=== PATIENT | male | born 1995 | race Caucasian/White ===

== ENCOUNTER 2017-11-26 14:51 | Emergency (ER) | payer SELFPAY ==
[2017-11-26 17:21] VITALS: BP 122/62
--- NOTE | 2017-11-26 17:34 | UC ---
Ear Complaint HPI - HPI Summary HPI Summary: 22 y/o male presents to the urgent care c/o Right ear fullness, or water in ear sensation since 11/20/17. 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 due to DM abuse. Left thigh lesion currently being treated with Bactrim for suspected MRSA; pt had lesion looked at today by [facility] staff on 2nd visit. Pt states he is extremely anxious about losing hearing in right ear. Hx of anxiety depression; has been off antianxiety med for 2 months - History of Current Complaint Chief Complaint: UCEar Stated Complaint: EAR COMPLAINT Time Seen by Provider: 11/26/17 16:56 Hx Obtained From: Patient Pain Intensity: 0 - Allergies/Home Medications Allergies/Adverse Reactions: Allergies Allergy/AdvReac Type Severity Reaction Status Date / Time Penicillins Allergy Unknown Verified 11/26/17 16:53 Reaction Details Home Medications: Home Medications Sulfamethox/Trimethoprim DS* [Bactrim DS 800/160 TAB*] 1 tab PO BID 11/26/17 [ History Confirmed 11/26/17] PMH/Surg Hx/FS Hx/Imm Hx - Surgical History Surgical History: Yes Surgery Procedure, Year, and Place: Jaw Fracture - Family History Known Family History: Positive: None, Cardiac Disease - Social History Alcohol Use: Weekly Alcohol Amount: 10 Substance Use Type: Marijuana, Other Substance Use Comment - Amount & Last Used: yesterday Smoking Status (MU): Never Smoked Tobacco - Immunization History Most Recent Influenza Vaccination: Not the Season Physical Exam Vital Signs: Initial Vital Signs Temp 99.2 F 11/26/17 17:07 Pulse 98 11/26/17 17:07 Resp 18 11/26/17 17:07 BP 122/62 11/26/17 17:07 Pulse Ox 100 11/26/17 17:07 Discharge - Discharge Plan Referrals: Non Staff,Doctor [Primary Care Provider] -
[2017-11-26] MEDS ORDERED: Lidocaine 2% PF * 5 ML VIAL INJ ONE (17:46)
--- NOTE | 2017-11-26 18:33 | UC ---
Skin Complaint HPI - HPI Summary HPI Summary: 22 y/o male presents to the urgent care - History of Current Complaint Chief Complaint: UCEar Time Seen by Provider: 11/26/17 16:56 Stated Complaint: EAR COMPLAINT Pain Intensity: 0 - Allergy/Home Medications Allergies/Adverse Reactions: Allergies Allergy/AdvReac Type Severity Reaction Status Date / Time Penicillins Allergy Unknown Verified 11/26/17 16:53 Reaction Details Home Medications: Home Medications Sulfamethox/Trimethoprim DS* [Bactrim DS 800/160 TAB*] 1 tab PO BID 11/26/17 [ History Confirmed 11/26/17] PMH/Surg Hx/FS Hx/Imm Hx - Surgical History Surgical History: Yes Surgery Procedure, Year, and Place: Jaw Fracture - Family History Known Family History: Positive: None, Cardiac Disease - Social History Alcohol Use: Weekly Alcohol Amount: 10 Substance Use Type: Marijuana, Other Substance Use Comment - Amount & Last Used: yesterday Smoking Status (MU): Never Smoked Tobacco - Immunization History Most Recent Influenza Vaccination: Not the Season Physical Exam Vital Signs: Initial Vital Signs Temp 99.2 F 11/26/17 17:07 Pulse 98 11/26/17 17:07 Resp 18 11/26/17 17:07 BP 122/62 11/26/17 17:07 Pulse Ox 100 11/26/17 17:07 Course/Dx - Differential Diagnoses - Skin Complaint Differential Diagnoses: Abscess - Diagnoses Provider Diagnoses: 1-left thight abscess. 2-hearing loss Discharge - Discharge Plan Condition: Stable Disposition: HOME Prescriptions: Acetaminophen TAB* [Tylenol TAB*] 650 mg PO Q4H PRN #20 tab PRN Reason: Pain Bacitracin OINTMENT* 1 applic TOPICAL TID #1 tube Patient Education Materials: Hearing Loss (ED), Abscess (ED) Referrals: [facility] [Outside] - 1 Day Axel Juárez MD [Medical Doctor] - 3 Days Additional Instructions: 1-Please continue taking full course of antibiotic to avoid resistance. Keep wound clean and dry with a sterile dressing. Apply bacitracin topical as directed 2- F/u your appt tomorrow for wound check up at the [facility] or at the urgent care for removal of packing 3-. Take Tylenol PO q4-6hrs prn for pain or swelling. 4-If you develop fever or redness despite antibiotic please go to the ER immediately or return to the Urgent care. 5- Wound culture sent to lab, if any abnormal result you will receive a call from us. 6-F/u ENT referral for your hearing loss
== END 2017-11-26 18:53 | disposition home or self-care (01) ==
LOC: UCCORT 14:51
DX: L02.416 Cutaneous abscess of left lower limb (principal); H91.90 Unspecified hearing loss, unspecified ear; Z88.0 Allergy status to penicillin; Z88.2 Allergy status to sulfonamides
CPT/HCPCS: 87070; 87205; 87640; 87641; 99212; G0463

== ENCOUNTER 2017-11-28 11:06 | Emergency (ER) | payer SELFPAY ==
[2017-11-28 12:58] VITALS: BP 124/71
--- NOTE | 2017-11-28 13:00 | ED ---
Skin Complaint - HPI Summary HPI Summary: 22 y/o male presents to the urgent care for recheck on his left thigh abscess. Pt states he went to the [facility] and REWEAVER repacked his abscess. He still taking Bactrim PO. He wants to make sure his wound is improving. Pain is 2/10 at touch. Pt denies fever, drainage, SOB, red streaks, chest pain, abdominal pain, N/V/D - History of Current Complaint Chief Complaint: UCSkin Time Seen by Provider: 11/28/17 12:52 Stated Complaint: WOUND REPACKING Hx Obtained From: Patient Onset/Duration: Started Days Ago - 5 days, Still Present Skin Exposure Onset/Duration: Days Ago - 5 days Timing: Constant Onset Severity: Moderate Current Severity: Mild Pain Intensity: 2 Pain Scale Used: 0-10 Numeric Skin Location: Discrete - left thigh abscess Character: Redness Aggravating Symptom(s): Touch Alleviating Symptom(s): OTC Meds, Other: - ABXs Associated Signs & Symptoms: Rash Related History: Other: - Hx of MRSA - Allergy/Home Medications Allergies/Adverse Reactions: Allergies Allergy/AdvReac Type Severity Reaction Status Date / Time Penicillins Allergy Unknown Verified 11/28/17 12:55 Reaction Details PMH/Surg Hx/FS Hx/Imm Hx Previously Healthy: Yes - Pt denies PMHX - Surgical History Surgery Procedure, Year, and Place: Jaw Fracture - Immunization History Immunizations Up to Date: Yes Infectious Disease History: No Infectious Disease History: Denies: Traveled Outside the [place] in Last 30 Days - Family History Known Family History: Positive: Cardiac Disease Family History: Dyslipidemia - Social History Occupation: Student Lives: With Family Alcohol Use: Weekly Alcohol Amount: 10 Substance Use Type: Reports: Marijuana Substance Use Comment - Amount & Last Used: yesterday Smoking Status (MU): Never Smoked Tobacco Review of Systems Constitutional: Negative Eyes: Negative ENT: Negative Cardiovascular: Negative Respiratory: Negative Gastrointestinal: Negative Genitourinary: Negative Musculoskeletal: Negative Positive: Other - Left thigh abscess packing re-check Neurological: Negative Psychological: Normal All Other Systems Reviewed And Are Negative: Yes Physical Exam - Summary Physical Exam Summary: Vital Signs Reviewed: Yes General: well developed, well nourished male sitting in the examining table w/o any apparent distress Eye Exam: Normal Eyes: Positive: Conjunctiva Clear - PERRLA, EOMI, fundi grossly normal ENT: Positive: Normal ENT inspection, Hearing grossly normal, Pharynx normal, TMs normal Neck: Positive: Supple, Nontender, No Lymphadenopathy Respiratory: Positive: Chest non-tender, Lungs clear, Normal breath sounds, No respiratory distress Cardiovascular: Positive: RRR, No Murmur, Pulses Normal, Brisk Capillary Refill Abdomen Description: Positive: Nontender, No Organomegaly, Soft. Negative: CVA Tenderness (R), CVA Tenderness (L) Bowel Sounds: Positive: Present Musculoskeletal: Positive: Strength Intact, ROM Intact, No Edema Neurological: Positive: Alert, Muscle Tone Normal Psychological Exam: Normal Skin: Positive:Lateral side of mid thigh w/ an abscess packing in placed, granulation observed mild erythema around abscess, mild tenderness to palaption , no drainage observed. FROM of LF extremity, sensation is intact, capillary refill WNL, reflexes WNL Triage Information Reviewed: Yes Vital Signs On Initial Exam: Initial Vitals Temp Pulse Resp BP Pulse Ox 98 F 70 16 124/71 97 11/28/17 12:53 11/28/17 12:53 11/28/17 12:53 11/28/17 12:53 11/28/17 12:53 Diagnostics - Vital Signs Vital Signs Temp Pulse Resp BP Pulse Ox 11/28/17 12:53 98 F 70 16 124/71 97 - Laboratory Lab Statement: Any lab studies that have been ordered have been reviewed, and results considered in the medical decision making process. Course/Dx - Course Course Of Treatment: 22 y/o male presents to the urgent care for recheck on his left thigh abscess. Pt states he went to the [facility] and REWEAVER repacked his abscess. He still taking Bactrim PO. He wants to make sure his wound is improving. Pain is 2/10 at touch. Pt denies fever, drainage, SOB, red streaks, chest pain, abdominal pain, N/V/D. Hx obtained. Pt 's lateral side mid thigh abscess healing well. Packing removed w/o any diffiuculty. normal granulation observed, no erythema or induration observed, mild tenderness to palpation. Pt tolerated well procedure. Topical bacitracin applied over and wound covered with sterile gauze. Wound culture positive for MRSA and Staph Aureus. Pt advised to finish full course of Bactrim PO. Wound D/C instructions given to PT. Pt understands and agreed with plan of care. - Differential Diagnoses - Skin Complaint Differential Diagnoses: Abscess - Diagnoses Provider Diagnoses: Encounter for recheck of abscess following incision and drainage Discharge - Discharge Plan Condition: Stable Disposition: HOME Patient Education Materials: Acute Wound Care (ED), Abscess (ED) Referrals: [facility] [Outside] - If Needed Additional Instructions: 1-Please continue taking full course of antibiotic to avoid resistance. Keep wound clean and dry with a sterile dressing. Apply bacitracin topical as directed 2- Take Tylenol PO q4-6hrs prn for pain or swelling. 3-If you develop fever or redness despite antibiotic please go to the ER immediately or return to the Urgent care.
== END 2017-11-28 13:29 | disposition home or self-care (01) ==
LOC: UCCORT 11:06
DX: Z09 Encounter for follow-up examination after completed treatment for conditions other than malignant neoplasm (principal); L02.416 Cutaneous abscess of left lower limb; Z86.14 Personal history of Methicillin resistant Staphylococcus aureus infection; Z88.0 Allergy status to penicillin
CPT/HCPCS: 99211; G0463